=== PATIENT | female | born 1950 | race Caucasian/White ===

== ENCOUNTER 2019-09-21 08:30 | Inpatient (IN) | payer OTHER, SELFPAY ==
[2019-09-13 09:51] VITALS: BMI 42.5
[2019-09-21] VITALS (18 sets, daily range): BP systolic 103–176; BP diastolic 53–109; PULSE 60–71; RESP 10–18; TEMP 35.7–36.8; O2SAT 96–100; BMI 42.5
--- NOTE | 2019-09-21 | DI.RAD.S_ITS ---
PROCEDURE: XR LUMBAR SPINE 2-3V INDICATIONS: L3-4 TLIF TECHNIQUE: 2 views of the lumbar spine were acquired. COMPARISON: None. FINDINGS: Spot fluoroscopic intraoperative images demonstrating L3-L4 posterior spinal fixation and interbody cage graft. Expected intraoperative alignment. Dictated by: Carlos Pérez M.D. on 09/21/2019 at 14:52 Approved by: Carlos Pérez M.D. on 09/21/2019 at 14:55
[2019-09-21] MEDS: LACTATED RINGERS 1,000 ML 42 ML IV ×3 (10:06→15:08)
--- NOTE | 2019-09-21 11:02 | PM.PREOP ---
Pre-operative Note Interval Note History & Physical reviewed/Exam performed by Physician: Yes Changes to H&P: No
[2019-09-21] MEDS: CEFAZOLIN 2 GM/100 ML FROZ.PIGGY IV ×2 (11:40→20:10)
--- NOTE | 2019-09-21 12:22 | SUR.OPER ---
Prone on spine table, head in foam head support, padded chest and pelvic supports, gel pad at knees, lower legs supported by pillows; nipples, genitalia and toes free of pressure, arms secured on foam padded arm boards at <90 degrees abduction. Tape over blanket at thigh secured to table.
[2019-09-21] MEDS: BUPIVACAINE LIPOSOME 266 MG/20 ML VIAL INJ (12:29)
[2019-09-21] MEDS: BUPIVACAINE 0.25% W/ EPI 30 ML VIAL INJ (12:30)
[2019-09-21] MEDS: ACETAMINOPHEN IV 1,000 MG/100 ML VIAL 400 MG IV (13:45)
--- NOTE | 2019-09-21 14:29 | PM.OP.1 ---
Operative Date/Time/Diagnoses Date of procedure: 09/21/19 Time of procedure: 12:29 Pre-op diagnosis: 1. L3-4 spinal stenosis with neurogenic claudication 2. L2-3, L3-4 spinal stenosis with radiculopathy Post-op diagnosis: same Procedure & Clinicians Procedure: 1. L3-4 Postero-lateral and posterior interbody fusion 2. L3-4 interbody cage placement. 3. L3-4 decompressive laminectomy with bilateral facetecomies 4. L3-4 Posterior non-segmental instrumentation 5. L2-3 hemilaminectomy 6. Panacea of bone marrow from iliac crest 7. Utilization of microsurgical technique and operating microscope Same procedure as scheduled: Yes Indications: Patient has been having chronic back pain and worsening lumbar radiculopathy. Patient failed multiple conservative management with worsening pain weakness and numbness in her lower extremity. The patient has symptoms of neurogenic claudication. Patient has been having difficulty performing activity of daily living. After discussing risks benefits of treatment options, patient elected proceed with surgery. Surgeon: Farideh Schilling Director Of Clinical Education: Spring Roth Click Yes if Unassisted: No Anesthesia Type: General Operative Notes Closure Type: primary Specimen(s): none sent Prosthetic devices, grafts, tissues, transplants, or devices: GLobus revolve, Rise cage Estimated Blood Loss (mL): 100 Blood products transfused: none Procedure in detail: Patient was seen in the preoperative area. Risks and benefits of the surgery was discussed with the patient. Informed consent was obtained from the patient and placed in the chart. Surgical site was marked. Patient was taken to the operative room. General anesthesia was administered. Prophylactic antibiotic was given to the patient less than 30 min before the incision was made. Patient was placed into a prone position on the Garrett table. Patient's back was then prepped and draped in the sterile fashion. Time-out was performed at this time. Using AP and lateral C-arm imaging the interval between L2-3 L3-4 was identified and marked on patient's back. A 2 inch incision 2 in from midline was made on the left side first. The fascia was incised in line with skin incision. Globus MARS retractors was placed inside the incision and docked onto the L3 lamina. Using microsurgical technique and operating microscope, a L3 laminectomy and L3-4 facetectomy was performed using a Kerrison rongeur. The disc space at L3-4 was identified. Patient was found have severe central and neural foramen stenosis due to spondylosis and ligamentum flavum hypertrophy. After the decompression was completed all the neural structures were fully decompressed without any visible pressure. And a total diskectomy was performed at L3-4 level. The endplates were decorticated using a rasp and shaver. The total diskectomy and decortication was performed at L3-4 level in order to to accomplish a L3-4 fusion. The local bone from the laminectomy and facetectomy was saved for local bone grafting. After the total diskectomy and decortication was completed, Globus viacell bone graft material was combined with local bone that was harvested earlier. At this time, a separate skin is incision was made over the iliac crest. A Jamshidi needle was inserted into the iliac crest through a separate skin incision. 5 cc of bone marrow aspiration was obtained through the separate skin incision using a Jamshidi needle from the iliac crest. The bone marrow aspiration was combined with local bone and the via cell bone grafting material. The bone grafting material was placed into the L3-4 interbody space along with a expandable cage. The cage was expanded to its maximum height using the torque limiting screwdriver. At this time the MARS retractor was redirected over the L2 lamina. Using microsurgical technique and operating microscope, a L2-3 heminectomy was performed using the Kerrison rongeur. The ligamentum flavum was also resected at the side of the hemilaminectomy for further decompression of the epidural space. At this time a mirror image incision was made on the right side. The fascia was incised in line with the skin incision. Globus MARS retractor was inserted and docked onto the L3-4 posterolateral gutter. Using the power drill, posterior-lateral decortication was performed at L3-4 level until bleeding cortical bone was identified. The remaining bone grafting material was placed into the L3-4 posterior lateral gutter he order to accomplish posterolateral fusion at the L3-4 level. Using the double C-arm technique, pedicle screws were placed into the L3 and L4 pedicles bilaterally. This was done by placing the Jamshidi needle into the pedicles, then placing the guidewires over the Jamshidi needle, and finally placing the cannulated screws over the guidewires bilaterally. After the pedicle screws were placed, 2 titanium rods was locked into the heads of the pedicle screws using locking caps and torque limiting screwdriver. After all the hardware was placed, and confirmed with AP and lateral C-arm imaging, the wound was then irrigated with sterile normal saline and packed with Ray-Antonio gauze for 3 min to accomplish hemostasis. After the gauze was removed the deep fascia was closed with #1 Vicryl suture. The subcutaneous layer was closed with 2-0 Vicryl. The skin was closed with skin alex. Patient tolerated the procedure well. There were no complications. Complications: none Post-operative Condition: stable Disposition: PACU Plan for aftercare: Admit to inpatient hospital
[2019-09-21] MEDS: HYDROMORPHONE 2 MG INJ 0.5 MG IV ×3 (14:50→15:25)
[2019-09-21] MEDS: hydrOXYzine 50 MG/ML INJ 25 MG IM (14:51)
[2019-09-21] MEDS: SODIUM CHLORIDE 0.9% 1,000 ML 100 ML IV (16:39)
[2019-09-21] MEDS: OXYCODONE IR 5 MG TABLET 10 MG PO ×2 (16:42→20:07)
[2019-09-21] MEDS: INSULIN GLARGINE 100 UNIT/ML 3ML PEN 44 UNIT SUBCUT (17:01)
[2019-09-21] MEDS: INSULIN ASPART 100 UNIT/ML INSULN PEN SUBCUT (17:03)
[2019-09-21] MEDS: INSULIN ASPART 100 UNIT/ML INSULN PEN 34 UNIT SUBCUT (17:03)
--- NOTE | 2019-09-21 17:12 | PC.NURSE ---
1600 - Patient brought over from PACU in bed by nursing staff. Alert and oriented. Able to move all extremities. Dressing to back C/D/I with slight shadow drainage noted. Noted to have some small scantily bleeding areas on back. Back wiped down and blue drainage pad placed under patient. 1630 - Confirmed with patient that she takes 34+ units of novolog with meals. 1715 - Patient sitting up eating in bed with spouse helping. O2 saturation down to the 80's periodically. Placed patient on 2L O2. 99% oxygen saturation now.
[2019-09-21] MEDS: HYDROMORPHONE 1 MG INJ 0.5 MG IV ×2 (17:53→21:32)
[2019-09-21] MEDS: DOCUSATE 100 MG CAPSULE PO (20:07)
[2019-09-21] MEDS: hydrOXYzine pamoate 25 MG CAPSULE PO (20:08)
[2019-09-21] MEDS: SENNOSIDES 8.6 MG TABLET 17.2 MG PO (20:08)
[2019-09-21] MEDS: ALBUTEROL HFA 60 PUFF/8 GM INH INH (22:58)
[2019-09-22] VITALS (13 sets, daily range): BP systolic 115–129; BP diastolic 45–65; PULSE 64–86; RESP 12–20; TEMP 36.7–38; O2SAT 94–97
[2019-09-22] MEDS: OXYCODONE IR 5 MG TABLET 10 MG PO ×7 (01:04→23:30)
[2019-09-22] MEDS: ALBUTEROL HFA 60 PUFF/8 GM INH INH ×3 (01:04→12:36)
[2019-09-22] MEDS: hydrOXYzine pamoate 25 MG CAPSULE PO ×2 (01:04→05:09)
[2019-09-22] MEDS: HYDROMORPHONE 1 MG INJ 0.5 MG IV (02:13)
[2019-09-22] MEDS: CEFAZOLIN 2 GM/100 ML FROZ.PIGGY IV (03:21)
--- NOTE | 2019-09-22 07:40 | PM.PNPO.1 ---
Subjective Subjective Date Patient Seen: 09/22/19 Time Patient Seen: 07:40 Interval history: Pain is mil paind [id number]. Denies fever chills. No nausea vomiting. No shortness of breath or chest pain. Patient has been up using bedside commode. Exam Vital Signs (past 8 hours): - 09/22/19 00:52 09/22/19 05:36 Temperature 99.8 F H Pulse Rate 77 Respiratory Rate 14 Blood Pressure 115/49 L Pulse Oximetry 97 96 Oxygen Delivery Method Nasal Cannula Oxygen Flow Rate 2 Narrative Exam Narrative: 69-year-old female resting comfortably in bed in no apparent distress. Lumbar dressing is clean, dry and intact. Motor functions intact distal bilateral lower extremities. Sensation grossly intact to light touch bilateral lower extremities. Both legs are warm and dry. Objective Labs Labs: Laboratory Results - last 24 hr 09/21/19 16:00 Nasal Screen MRSA (PCR) Negative for mrsa Assessment & Plan Post-op Postoperative Procedures: Procedures Operation Date: 09/21/19 11:15 Actual Procedures Side Surgeon p L3-4 TLIF, L2-3 hemilaminectomy Farideh Schilling MD Postop day 1. Mobilize with physical therapy. Likely discharge home next day or 2.
[2019-09-22] MEDS: ATENOLOL 50 MG TABLET PO (08:22)
[2019-09-22] MEDS: DOCUSATE 100 MG CAPSULE PO ×2 (08:22→20:01)
[2019-09-22] MEDS: hydroCHLOROthiazide 25 MG TABLET PO (08:23)
[2019-09-22] MEDS: PANTOPRAZOLE 20 MG TABLET PO (08:23)
[2019-09-22] MEDS: SODIUM CHLORIDE 0.9% FLUSH 10 ML IV ×2 (08:23→16:00)
[2019-09-22] MEDS: EZETIMIBE 10 MG TABLET PO (08:23)
[2019-09-22] MEDS: INSULIN ASPART 100 UNIT/ML INSULN PEN SUBCUT (08:24)
[2019-09-22] MEDS: INSULIN ASPART 100 UNIT/ML INSULN PEN 34 UNIT SUBCUT ×3 (08:24→17:05)
--- NOTE | 2019-09-22 09:13 | CM.DANOTE ---
Addendum entered by Damari Salamanca R.N. 09/22/19 15:22: Spoke to patient to get permission to send referrals to intermediate facilities that can accept her insurance, just in case she needs skilled rehab before returning home. She stated, would be ok. Sent information to Tru at [facility], as well as Meredith at [facility], since authorization could take up to a couple of days. Addendum entered by Damari Salamanca R.N. 09/22/19 14:41: Confirmed with Meredith, that [facility] in [facility] does take her insurance. Tru at [facility] also stated that they accept her insurance. Authorization process can take a couple of days, and patient is not wanting to go to skilled at this point. Will check in again tomorrow. Addendum entered by Damari Salamanca R.N. 09/22/19 14:30: Met with patient, and , Man. Discussed intermediate, and patient stated I really don't want to go to a intermediate facility. was unclear as to what a rehab was, and what they do. Patient has [employer], and [facility] does not take. Went ahead and gave patient the Medicare Choice List, in case she changes her mind. P.T. recommendations are skilled versus 24 hour care, but is at home. Confirmed that they have a couple of steps to get into the home, and she can stay on the main floor. Left a message with [facility] and [facility] in [facility] to see if they take her insurance. Dominique at [facility] is uncertain if they take, since there are different types of [employer]. Stated that we can fax her over face sheet, and she can review, but would need to check with patient first. Will check in with patient again tomorrow, as well as P.T. team, as far as discharge planning. Original Note: DCP: Case received, EMR reviewed and met with patient. Introduced self and role. Was able to meet with patient and obtain baseline health and activity information. DCP assessment/template completed with information currently available. Patient is a 69 year old female who admitted yesterday morning to the care of the orthopedic team. PCP: Dr. Galeas. Payer: confirmed: [employer]. Patient came to the hospital for a surgical procedure. She had L3-4 Postero-lateral fusion. Met with patient in her room. She was sitting in a recliner next to her bed. Stated, she was having some discomfort. She has not yet worked with physical therapy. Patient is alert and oriented. She resides in [place] [facility] with her spouse, Man. Stated, her will be able to help her out. Confirmed with patient that she only has used a cane, but just purchased a walker. She has approximately 18 stairs in her home. She has been independent. P: DCP to continue to follow. Will consult with the therapy team as well to see how she is progressing. Goal for patient is to go home. Damari Salamanca RN/Hand Spring Repairer
--- NOTE | 2019-09-22 10:30 | PT.IIE ---
Current Diagnoses Morbid (severe) obesity due to excess calories (09/21/19) Other spondylosis with radiculopathy, lumbosacral region (09/21/19) Spinal stenosis, lumbar region with neurogenic claudication (09/21/19) Surgery Performed Operation Date: 09/21/19 11:15 Actual Procedures p L3-4 TLIF, L2-3 hemilaminectomy - Farideh Schilling MD Surgical History (Last Updated 09/13/19 @ 10:27 by Vita Cardenas RN) History of left oophorectomy (Acute) History of total right hip arthroplasty (Acute ~2009) Hx of appendectomy (Acute) Hx of sinus surgery (Acute ~2001) Hx of tonsillectomy (Acute) Medical History (Last Updated 09/13/19 @ 10:28 by Vita Cardenas RN) Anemia (Acute) Arthritis (Acute) Asthma (Acute) Back pain (Acute) Bilateral carpal tunnel syndrome (Acute) Diabetes (Acute) Easy bruisability (Acute) Fatty liver (Acute) Fibromyalgia (Acute) GERD (gastroesophageal reflux disease) (Acute) HLD (hyperlipidemia) (Acute) HTN (hypertension) (Acute) IBS (irritable bowel syndrome) (Acute) Migraine (Acute) Numbness and tingling in both hands (Acute) Sciatica (Acute) Physical Therapy Inpatient Evaluation/Re-Eval M1 PT/OT-IP Prior Functional Status Start: 09/22/19 12:36 Freq: NEEDED Status: Active Protocol: Document 09/22/19 10:30 AB (Rec: 09/22/19 12:53 AB [id number]) Medical Review Prior Functional Status Medical History Reviewed Yes Communication able to make needs known; pt is sleepy Mobility and Gait pt stated that she is independent with all mobilities and ambulation without AD Social History Household Members spouse Living Arrangements House Number of Floors (Floors) Two Floors Number of Stairs To Enter/Railing? 2 steps to enter without rail has 9 steps with bilat rais + 9 steps with L rail ascending ot bedroom level but stated that she can stay on main level of the house Home Environment Standard Height Toilet,Walk in Shower,Built-In Shower Seat Home Equipment Front Wheel Walker,Hand Held Shower,Grab Bars In Shower Additional Social History Comment pt has an adjustable bed but pt sleeps on a power recliner pt also has a hurrycane M2 PT-IP Current Condition Start: 09/22/19 12:36 Freq: NEEDED Status: Active Protocol: Document 09/22/19 10:30 AB (Rec: 09/22/19 12:53 AB [id number]) Physical Therapy Current Condition Current Condition Evaluation Date 09/22/19 Treatment Diagnosis s/p L3-4 fusion/lami; L2-3 hemilami; difficulty in walking Onset Date 09/21/19 Precautions Lumbar Precautions Log Roll,No Twisting,Limit Bending,Lifting Restriction of 10 lbs,Gait Belt above Incisional Area M3 PT-IP Subjective Start: 09/22/19 12:36 Freq: NEEDED Status: Active Protocol: Document 09/22/19 10:30 AB (Rec: 09/22/19 12:53 AB [id number]) Subjective Physical Therapy Visit Type Type Initial Evaluation Visit Start Time 10:30 Visit Stop Time 11:21 Total Visit Minutes 51 Number of OCTAVE BOARD ASSEMBLER Visits 0 Physical Therapy Visit Comments Patient Comments pt agreeable to do PT Therapy Pain Assessment Pain When Pain Assessed At Rest Pain Present Pain Present Pain Reported Location Left Hip Intensity 4 Scale Used increases with mobility Pain Management Techniques Distraction,Re-positioning, Timing of Activity with Medications M4 PT-IP Mobility and Gait Start: 09/22/19 12:36 Freq: NEEDED Status: Active Protocol: Document 09/22/19 10:30 AB (Rec: 09/22/19 12:53 AB [id number]) PT-Bed Mobility Assessment Rolling Level of Assist Maximal Assistance,1 Person Assistance Sit to Supine Sit to Supine Maximum Assistance,1 Person Assistance,Bedrails PT-Transfer Assessment Sit to and From Stand Sit to and from Stand Moderate Assistance,1 Person Assistance,Use of Upper Extremities Equipment Transfer Assistive Device Gait Belt,Front Wheeled Walker Orthotic/Prosthetic Devices or Brace: No Transfers Transfer Destination Toilet Transfer Technique pt ambulated using FWW Transfer Ability Level of Assist Minimal Assistance,Moderate Assistance,1 Person Assistance ,Use of Upper Extremities Comments Mobility Comments pt found sitting on chair. completed sit to stand mod A and cues for techniques and safety. pt requested to use the toilet. ambulated using FWW min to mod A and cues ~ 12 ft. pt completed sit to stand from bedside commode mod A and max cues. ambulated towards the bed using FWW ~ 12 ft min A to mod A. requiring increase assistance towards end of ambulation with increase bilateral knee flexion. pt stated that her pain is more and her arms are tired. pt required max A with bed mobility sit to supine. requested to stay on her side and positioned but after ~ 3 min stated that she has to lie down on her back and repositioned. after repositioning, stated that it will not work and will have to be repositioned again. informed nurse that pt require assistance with further repositioning. call light and table set next to pt . informed spouse regarding concerns and equipement needs. Gait Assessment Gait Gait Assistance Required: Minimum Assistance,Moderate Assistance Distance (Feet) 12 Able to Maintain Weight Bearing Status Yes During Gait Assistive Devices Assistive Device Gait Belt,Front Wheeled Walker Orthotic/Prosthetic Devices or Brace: No Gait Deviations General Gait Pattern Antalgic,Decreased Stride Length,Decreased Feet Clearance,Step-to Gait Factors Limiting Gait Function Factors Limiting Gait Function Decreased Activity Tolerance, Decreased Strength,Difficulty Following Directions,Limited Range of Motion,Pain,Poor Balance,Poor Safety Awareness Comments Gait Comments pls refer to mobility section for details PT-Balance Assessment Sitting Balance and Reactions Static Sitting Balance Ability Good Dynamic Sitting Balance Ability Good Standing Balance and Reactions Static Standing Balance Ability Fair Dynamic Standing Balance Ability Poor Device Used FWW M5 PT-IP Objective Assessments Start: 09/22/19 12:36 Freq: NEEDED Status: Active Protocol: Document 09/22/19 10:30 AB (Rec: 09/22/19 12:53 AB [id number]) Orientation Orientation/Cognition Orientation Name,Place,Situation Language Function Ability No Deficits Noted Safety Awareness Decreased Safety Awareness Memory Description Short Term Impaired Comments pt was sleepy and requires cue to keep eyes open initially but was able to stay alert during mobility Gross Range of Motion Lower Extremity ROM Assessment Within Functional Limits Strength Lower Extremity Strength Hip 4-/5 Knee 4-/5 Coordination Assessment Gross Coordination Gross Coordination WNL Muscle Tone Muscle Tone WNL Yes M6 PT-IP Treatment Start: 09/22/19 12:36 Freq: NEEDED Status: Active Protocol: Document 09/22/19 10:30 AB (Rec: 09/22/19 12:53 AB [id number]) Physical Therapy Treatment Education Education Provided Precautions,Weight Bearing Status,Post-Op Packet,Safety M7 PT-IP Assessment and Plan Start: 09/22/19 12:36 Freq: NEEDED Status: Active Protocol: Document 09/22/19 10:30 AB (Rec: 09/22/19 12:53 AB [id number]) PT Summary Assessment and Plan Potential Rehabilitation Potential Good Status of Condition at Evaluation Evolving Summary Impairments Pain,ROM,Strength,Balance, Coordination,Sensation,Tone, Cognition,Bed Mobility, Transfers,Gait,Activity Tolerance Assessment Summary pt requiring min to mod A with mobility but unable to tolerate much activity. increase assistance during ambulation using FWW towards end of activity with increase bilateral gray flexion. d/c plan depending on progress and if spouse will be able to assist pt and if pt will be able to safely complete stairs . Goals Bed Mobility Goal Standby Assistance Transfer Goal Standby Assistance,Front Wheeled Walker Gait Goal Standby Assistance,Front Wheel Walker Gait Distance 150 Other Goals up/down 2 steps without rails: using hurrycane+ PULLING UNIT FLOORHAND Days to Meet Goals 5 Frequency of Treatment Frequency Of Treatment Twice a Day Treatment Plan Physical Therapy Treatment Plan Bed Mobility Training,Transfer Training,Gait Training, Therapeutic Exercise,Balance Retraining,Post Op Education, Discharge Planning,Hot or Cold Pack,Neuromuscular Re-ed, Coordination Retraining,Manual Therapy Other Recommendations and Next Treatment ambulation, caregiver training Focus Recommendations To Nursing Amount of Assist Needed 1 Person Assist Discharge Recommendations PT Discharge Recommendations Home with 24/7 Assist,SNF Rehab Other Discharge Recommendations SNF vs home with 24/7 depending on progress
[2019-09-22] MEDS: LOSARTAN 50 MG TABLET 100 MG PO (11:29)
--- NOTE | 2019-09-22 13:17 | PC.NURSE ---
Pt checked on and assessed. Pt is received sitting up in bed, initially reports pain well-controlled, but after mobilizing, pt reports pain up to 7/10, given po oxycodone with pain well controlled. Pt is drowsy after pain medication administration. Post-op dressing is CDI. CMS intact to pt's baseline, pt is strong but takes time to mobilize d/t pain. Pt wears braces on bilateral arms d/t carpal tunnel syndrome. Pt is improving mobility throughout the day. Voiding adequate volumes throughout the day. Call light in reach. Will continue to monitor, notify MD with changes.
--- NOTE | 2019-09-22 13:35 | PT.IPTN ---
Addendum entered and electronically signed by Deepika Carl PTA 09/22/19 15:19: Pt was up in the chair to each lunch with in room when completed PT. Call light was within reach on EOB. Original Note: Current Diagnoses Morbid (severe) obesity due to excess calories (09/21/19) Other spondylosis with radiculopathy, lumbosacral region (09/21/19) Spinal stenosis, lumbar region with neurogenic claudication (09/21/19) Surgery Performed Operation Date: 09/21/19 11:15 Actual Procedures p L3-4 TLIF, L2-3 hemilaminectomy - Farideh Schilling MD Physical Therapy Treatment Note M2 PT-IP Current Condition Start: 09/22/19 12:36 Freq: NEEDED Status: Active Protocol: Document 09/22/19 10:30 AB (Rec: 09/22/19 12:53 AB [id number]) Physical Therapy Current Condition Current Condition Evaluation Date 09/22/19 Treatment Diagnosis s/p L3-4 fusion/lami; L2-3 hemilami; difficulty in walking Onset Date 09/21/19 Precautions Lumbar Precautions Log Roll,No Twisting,Limit Bending,Lifting Restriction of 10 lbs,Gait Belt above Incisional Area M3 PT-IP Subjective Start: 09/22/19 12:36 Freq: NEEDED Status: Active Protocol: Document 09/22/19 13:35 SP (Rec: 09/22/19 13:49 SP [id number]) Subjective Physical Therapy Visit Type Type Treatment Note Visit Start Time 12:50 Visit Stop Time 13:35 Total Visit Minutes 2 Number of TEACHER ADULT EDUCATION Visits 1 Physical Therapy Visit Comments Patient Comments Pt willing to work with PT this afternoon. Patient Goals get up and move around more, go to the bathroom. Therapy Pain Assessment Pain When Pain Assessed At Rest Pain Present Pain Present Pain Reported Location Left Hip Intensity 5 Scale Used Numeric (1 - 10) Pain Management Techniques Re-positioning,Timing of Activity with Medications M4 PT-IP Mobility and Gait Start: 09/22/19 12:36 Freq: NEEDED Status: Active Protocol: Document 09/22/19 13:35 SP (Rec: 09/22/19 13:56 SP [id number]) PT-Bed Mobility Assessment Supine to Sit Supine to Sit Maximum Assistance,1 Person Assistance,Bedrails Scooting Scooting to Edge of Bed Moderate Assistance PT-Transfer Assessment Sit to and From Stand Sit to and from Stand Moderate Assistance,1 Person Assistance,Use of Upper Extremities Equipment Transfer Assistive Device Gait Belt,Front Wheeled Walker Orthotic/Prosthetic Devices or Brace: No Transfers Transfer Destination Chair,Toilet Transfer Technique pt ambulated using FWW Transfer Ability Level of Assist Minimal Assistance,Moderate Assistance,1 Person Assistance ,Use of Upper Extremities Comments Mobility Comments Pt found R sidelying in bed with pillows between knees when arrived. sidely>sitting with cues for hand placement usign rail and pushing from bed Max A x1, Mod A to scoot to EOB, Mod A sit to stand with safety cues for hand placement to push up, sitting down, and body spacial awareness positioning prior to sitting. Pt good recall to precautions. Pt demonstrated Min BUE support on FWW during gait to bathroom, required full A for hygiene durign toileting x2 occurances during tx. Gait Assessment Gait Gait Assistance Required: Contact Guard Assist,Minimum Assistance Distance (Feet) 30 Able to Maintain Weight Bearing Status Yes During Gait Assistive Devices Assistive Device Gait Belt,Front Wheeled Walker Orthotic/Prosthetic Devices or Brace: No Gait Deviations General Gait Pattern Antalgic,Decreased Stride Length,Decreased Feet Clearance,Step-to Gait Factors Limiting Gait Function Factors Limiting Gait Function Decreased Activity Tolerance, Decreased Strength,Difficulty Following Directions,Limited Range of Motion,Pain,Poor Balance,Poor Safety Awareness Comments Gait Comments pls refer to mobility section for details PT-Balance Assessment Sitting Balance and Reactions Static Sitting Balance Ability Good Dynamic Sitting Balance Ability Good Standing Balance and Reactions Static Standing Balance Ability Fair Dynamic Standing Balance Ability Fair Device Used FWW M5 PT-IP Objective Assessments Start: 09/22/19 12:36 Freq: NEEDED Status: Active Protocol: Document 09/22/19 10:30 AB (Rec: 09/22/19 12:53 AB [id number]) Orientation Orientation/Cognition Orientation Name,Place,Situation Language Function Ability No Deficits Noted Safety Awareness Decreased Safety Awareness Memory Description Short Term Impaired Comments pt was sleepy and requires cue to keep eyes open initially but was able to stay alert during mobility Gross Range of Motion Lower Extremity ROM Assessment Within Functional Limits Strength Lower Extremity Strength Hip 4-/5 Knee 4-/5 Coordination Assessment Gross Coordination Gross Coordination WNL Muscle Tone Muscle Tone WNL Yes M6 PT-IP Treatment Start: 09/22/19 12:36 Freq: NEEDED Status: Active Protocol: Document 09/22/19 13:35 SP (Rec: 09/22/19 13:49 SP [id number]) Physical Therapy Treatment Exercises Exercises Ankle Pumps,Seated Knee Flexion/Extension Knee ROM Measurement seated march Education Education Provided Precautions,Safety M7 PT-IP Assessment and Plan Start: 09/22/19 12:36 Freq: NEEDED Status: Active Protocol: Document 09/22/19 13:35 SP (Rec: 09/22/19 13:49 SP [id number]) PT Summary Assessment and Plan Potential Rehabilitation Potential Good Status of Condition at Evaluation Evolving Summary Impairments Pain,ROM,Strength,Balance, Coordination,Sensation,Tone, Cognition,Bed Mobility, Transfers,Gait,Activity Tolerance Assessment Summary pt requiring Max A x1 for supine>sitting and scooting to EOB, mod A x1 sit <> stand, CGA gait side chair to toilet x2 with minimal BUE WB on FWW, no LOB or deviations. Cued for safety wtih hand placement to stand , sit , spacial awareness of body positioning priort to sitting. Pt had increased activity tolerance this afternoon. d/c plan depending on progress and if spouse will be able to assist pt and if pt will be able to safely complete stairs. Goals Bed Mobility Goal Standby Assistance Transfer Goal Standby Assistance,Front Wheeled Walker Gait Goal Standby Assistance,Front Wheel Walker Gait Distance 150 Other Goals up/down 2 steps without rails: using hurrycane+ CUT TOBAC[employer] BULKER Days to Meet Goals 5 Frequency of Treatment Frequency Of Treatment Twice a Day Treatment Plan Physical Therapy Treatment Plan Bed Mobility Training,Transfer Training,Gait Training, Therapeutic Exercise,Balance Retraining,Post Op Education, Discharge Planning,Hot or Cold Pack,Neuromuscular Re-ed, Coordination Retraining,Manual Therapy Other Recommendations and Next Treatment ambulation, caregiver training Focus Recommendations To Nursing Amount of Assist Needed 1 Person Assist Discharge Recommendations PT Discharge Recommendations Home with 24/7 Assist,SNF Rehab Other Discharge Recommendations SNF vs home with 24/7 depending on progress
--- NOTE | 2019-09-22 15:30 | OT.IP.EVAL ---
Current Diagnoses Morbid (severe) obesity due to excess calories (09/21/19) Other spondylosis with radiculopathy, lumbosacral region (09/21/19) Spinal stenosis, lumbar region with neurogenic claudication (09/21/19) Surgery Performed Operation Date: 09/21/19 11:15 Actual Procedures p L3-4 TLIF, L2-3 hemilaminectomy - Farideh Schilling MD Past Medical History (Last Updated 09/13/19 @ 10:28 by Vita Cardenas RN) Anemia (Acute) Arthritis (Acute) Asthma (Acute) Back pain (Acute) Bilateral carpal tunnel syndrome (Acute) Diabetes (Acute) Easy bruisability (Acute) Fatty liver (Acute) Fibromyalgia (Acute) GERD (gastroesophageal reflux disease) (Acute) HLD (hyperlipidemia) (Acute) HTN (hypertension) (Acute) IBS (irritable bowel syndrome) (Acute) Migraine (Acute) Numbness and tingling in both hands (Acute) Sciatica (Acute) Surgical History (Last Updated 09/13/19 @ 10:27 by Vita Cardenas RN) History of left oophorectomy (Acute) History of total right hip arthroplasty (Acute ~2009) Hx of appendectomy (Acute) Hx of sinus surgery (Acute ~2001) Hx of tonsillectomy (Acute) Occupational Therapy Inpatient Evaluation/Re-Eval M1 PT/OT-IP Prior Functional Status Start: 09/22/19 17:30 Freq: NEEDED Status: Active Protocol: Document 09/22/19 15:30 [facility] (Rec: 09/22/19 17:50 [facility] [id number]) Medical Review Prior Functional Status Medical History Reviewed Yes Communication able to make needs known; pt is sleepy Mobility and Gait pt stated that she is independent with all mobilities and ambulation without AD Activities of Daily Living and IADL's Pt states able to do all ADl's and however admitted to not being able to wipe herself. Social History Household Members spouse Living Arrangements House Number of Floors (Floors) Two Floors Number of Stairs To Enter/Railing? 2 steps to enter without rail has 9 steps with bilat rails + 9 steps with L rail ascending ot bedroom level but stated that she can stay on main level of the house Home Environment Standard Height Toilet,Walk in Shower,Built-In Shower Seat Home Equipment Front Wheel Walker,Hand Held Shower,Grab Bars In Shower Additional Social History Comment pt has an adjustable bed but pt sleeps on a power recliner pt also has a hurrycane M2 OT-IP Current Condition Start: 09/22/19 17:30 Freq: Status: Active Protocol: Document 09/22/19 15:30 [facility] (Rec: 09/22/19 17:50 [facility] [id number]) Occupational Therapy Current Condition Current Condition Evaluation Date 09/22/19 Treatment Diagnosis S/p L3-4 fusion/lami L2-3 luciano -lami, decreased self care Diagnosis Onset Date 09/21/19 Post Operative Precautions Lumbar Precautions Log Roll,No Twisting,Limit Bending,Lifting Restriction of 10 lbs,Gait Belt above Incisional Area Weight Bearing Status Weight Bearing Status Weight Bear as Tolerated M3 OT- IP Subjective and Pain Start: 09/22/19 17:30 Freq: Status: Active Protocol: Document 09/22/19 15:30 [facility] (Rec: 09/22/19 17:50 [facility] [id number]) OT- Subjective Occupational Therapy Visit Type Type Initial Evaluation Visit Start Time 15:30 Visit Stop Time 15:58 Total Visit Minutes 28 Occupational Therapy Visit Comments Patient Comments Pt wanting to get back to bed and present for OT eval. Patient/Caregiver Goals Pt wanting to go home. OT Pain Assessment Pain When Pain Assessed At Rest Pain Present Pain Present Pain Reported Location Left Hip Intensity 5 Scale Used Numeric (1 - 10) M4 OT- IP ADL's Start: 09/22/19 17:30 Freq: Status: Active Protocol: Document 09/22/19 15:30 [facility] (Rec: 09/22/19 17:50 [facility] [id number]) OT ADL-Dressing General Eval Lower Body Dressing Ability Maximum Assistance Areas Needing Assistance Socks Comments OT Dressing Comments Pt has chemical engineering teacher at home and will benefit from more training with LB dressing equipment tomorrow for OT. OT ADL-Toileting Comments OT Toileting Comments pt not having to use the toilet. Suggested pt get BSC as pt heavily relies on her arms to stand and also can be used next to the bed if needed. In addition pt may want to consider getting toilet aid as unable to reach to wipe or will have to assist. OT ADL-Bathing Comments OT Bathing Comments Pt has built in wilber at home. M5 OT- IP IADL's Start: 09/22/19 17:30 Freq: Status: Active Protocol: Document 09/22/19 15:30 [facility] (Rec: 09/22/19 17:50 [facility] [id number]) OT-Instrumental Activities of Daily Living Medication Management Medication Management Comments Suggested pt's to assist as pt very groggy from pain medications. Money Management Money Management Caregiver Provides Assistance Manager Utilization Manager Utilization Caregiver Provides Assist M6 OT- IP Functional Cognition Start: 09/22/19 17:30 Freq: Status: Active Protocol: Document 09/22/19 15:30 [facility] (Rec: 09/22/19 17:50 [facility] [id number]) Cognitive Factors Limiting Selfcare Function Cognitive Ability Level of Alertness Alert,Drowsy Patient Orientation Name,Place,Situation Attention Span Ability Capable of Focused Attention, Capable of Sustained Attention Ability to Follow Commands Able to Follow One Step Commands with Increased Time, Able to Follow One Step Commands with Repetition Memory Description Short Term Impaired Safety Awareness Decreased Recall of Precautions,Decreased Ability to Apply Precautions, Underestimates Need for Assistance Cognitive Comments Cognitive Assessment Comments Pt unable to recall back precautions and needed step by step instructions for safety awareness for hand placement and FWW use.Pt falling asleep during OT eval. OT- Vision and Hearing OT- Hearing Assessment OT- Hearing Assessment WFL OT- Vision Assessment Visual Acuity Glasses For Reading M7 OT- IP Mobility and Balance Start: 09/22/19 17:30 Freq: Status: Active Protocol: Document 09/22/19 15:30 [facility] (Rec: 09/22/19 17:50 [facility] [id number]) OT-Transfer Assessment Sit to and From Stand Sit to and from Stand Moderate Assistance Transfers Transfer Ability Minimal Assistance,Moderate Assistance,1 Person Assistance Technique Transfer Destination Bed,Chair Transfer Technique Stand Step Pivot Devices Transfer Assistive Devices Gait Belt,Front Wheeled Walker Comments Mobility Comments Pt usually sleeps in a recliner at home. MODA to help stand and MIN/MODA for steadying and to help guide FWW and to ease down to the recliner. OT- Balance Assessment Sitting Balance and Reactions Static Sitting Balance Ability Good Standing Balance and Reactions Static Standing Balance Ability Fair M8 OT- IP Objective Assessments Start: 09/22/19 17:30 Freq: Status: Active Protocol: Document 09/22/19 15:30 [facility] (Rec: 09/22/19 17:50 [facility] [id number]) OT Gross Range of Motion Upper Extremity Range of Motion Assessment Right Impaired ROM Impairments Per pt right UE catches at times when reaching upright. OT Strength Comments Strength Comments Pt had bilateral wrist braces due to carpal tunnel. Pt's hand loss control consultant 3+/4-. OT- Coordination Assessment Comments Coordination Comments Decreased coordination in hands. M9 OT- IP Assessment and Plan Start: 09/22/19 17:30 Freq: Status: Active Protocol: Document 09/22/19 15:30 [facility] (Rec: 09/22/19 17:50 [facility] [id number]) OT Summary Assessment and Plan Potential Rehabilitation Potential Good Analytic Complexity at Evaluation Low Summary OT Impairments Pain,Balance,Coordination, Functional Cognition, Functional Mobility,Grooming, Dressing,Toileting,Bathing, Toilet Transfers,Shower Transfers Progress Towards Goals Slow Progress due to Pain,Slow Progress due to Activity Tolerance,Slow Progress due to Cognition Assessment Summary Pt low complexity and main barriers are steps, decreased ADl's and functional mobility , decreased activity tolerance , strength and safety awareness at this time. Pt wanting to go home. Pt's needing repetitive instructions of what equipment to get for the pt and need need multiple caregiver sessions prior for ADL and functional mobility training prior to going home. Pending caregiver training pt to go home with assist and HH versus skilled rehab. Goals Grooming Goal Standby Assistance Dressing Goal Minimal Assistance Toileting Goal Minimal Assistance Bathing Goal Minimal Assistance Toilet Transfer Goal Standby Assistance Shower Transfer Goal Contact Guard Assistance Patient/Caregiver Education Goal Demonstrate Post-Op Precautions,Caregiver Independent Assisting Patient Days to Meet Goals 5 Frequency of Treatment Frequency Of Treatment Once a Day Treatment Plan OT Treatment Plan ADL Training,Functional Cognition Training,Functional Mobility,Patient/Family Education,Discharge Planning Other Treatment Recommendations and Next caregiver training with Treatment Focus Discharge Recommendations OT Discharge Recommendations SNF Rehab Other Discharge Recommendations Pending caregiver training completion and safety SNF versus Home with assist and HH . Home Equipment Needs BSC, LB dressing adaptive equipment, toilet aid
[2019-09-22] MEDS: ACETAMINOPHEN 325 MG TABLET 650 MG PO ×2 (17:01→23:31)
[2019-09-22] MEDS: INSULIN GLARGINE 100 UNIT/ML 3ML PEN 44 UNIT SUBCUT (17:06)
[2019-09-22] MEDS: SENNOSIDES 8.6 MG TABLET 17.2 MG PO (20:01)
[2019-09-22] MEDS: MAGNESIUM HYDROXIDE 30 ML UDC PO (23:41)
[2019-09-23 03:43] VITALS: BP 125/52; PULSE 56; RESP 18; TEMP 36.8; O2SAT 99
[2019-09-23] MEDS: OXYCODONE IR 5 MG TABLET 10 MG PO ×5 (03:45→22:45)
[2019-09-23] MEDS: hydrOXYzine pamoate 25 MG CAPSULE PO ×2 (05:33→08:20)
[2019-09-23 08:00] VITALS: BP 154/69; PULSE 60; RESP 20; TEMP 36.9; O2SAT 95
[2019-09-23 08:20] VITALS: BP 154/69
[2019-09-23] MEDS: PANTOPRAZOLE 20 MG TABLET PO (08:20)
[2019-09-23] MEDS: LOSARTAN 50 MG TABLET 100 MG PO (08:20)
[2019-09-23] MEDS: DOCUSATE 100 MG CAPSULE PO ×2 (08:20→20:24)
[2019-09-23] MEDS: hydroCHLOROthiazide 25 MG TABLET PO (08:20)
[2019-09-23] MEDS: INSULIN ASPART 100 UNIT/ML INSULN PEN SUBCUT ×3 (08:57→17:05)
[2019-09-23] MEDS: INSULIN ASPART 100 UNIT/ML INSULN PEN 34 UNIT SUBCUT ×3 (08:57→17:06)
[2019-09-23] MEDS: EZETIMIBE 10 MG TABLET PO (09:10)
[2019-09-23] MEDS: ATENOLOL 50 MG TABLET PO (09:10)
[2019-09-23 09:32] VITALS: PULSE 68; RESP 16; O2SAT 95
--- NOTE | 2019-09-23 12:05 | PT.IPTN ---
Current Diagnoses Morbid (severe) obesity due to excess calories (09/21/19) Other spondylosis with radiculopathy, lumbosacral region (09/21/19) Spinal stenosis, lumbar region with neurogenic claudication (09/21/19) Surgery Performed Operation Date: 09/21/19 11:15 Actual Procedures p L3-4 TLIF, L2-3 hemilaminectomy - Farideh Schilling MD Physical Therapy Treatment Note M2 PT-IP Current Condition Start: 09/22/19 12:36 Freq: NEEDED Status: Active Protocol: Document 09/22/19 10:30 AB (Rec: 09/22/19 12:53 AB [id number]) Physical Therapy Current Condition Current Condition Evaluation Date 09/22/19 Treatment Diagnosis s/p L3-4 fusion/lami; L2-3 hemilami; difficulty in walking Onset Date 09/21/19 Precautions Lumbar Precautions Log Roll,No Twisting,Limit Bending,Lifting Restriction of 10 lbs,Gait Belt above Incisional Area M3 PT-IP Subjective Start: 09/22/19 12:36 Freq: NEEDED Status: Active Protocol: Document 09/23/19 12:09 SP (Rec: 09/23/19 12:23 SP [id number]) Subjective Physical Therapy Visit Type Type Treatment Note Visit Start Time 11:50 Visit Stop Time 12:05 Total Visit Minutes 3 Number of DRY KILN OPERATOR Visits 2 Physical Therapy Visit Comments Patient Comments Pt willing to work with PT, having bowel problems this am. Patient Goals Go to the bathroom one more time then trial steps to be able to go home. Therapy Pain Assessment Pain When Pain Assessed At Rest Pain Present Pain Present Pain Reported Location Left Hip Intensity 4 Scale Used Numeric (1 - 10) Description Cramping,Spasm Pain Management Techniques Re-positioning,Timing of Activity with Medications M4 PT-IP Mobility and Gait Start: 09/22/19 12:36 Freq: NEEDED Status: Active Protocol: Document 09/23/19 12:09 SP (Rec: 09/23/19 12:23 SP [id number]) PT-Transfer Assessment Sit to and From Stand Sit to and from Stand Minimal Assistance,1 Person Assistance,Use of Upper Extremities Equipment Transfer Assistive Device Gait Belt,Front Wheeled Walker Orthotic/Prosthetic Devices or Brace: No Transfers Transfer Destination Chair,Toilet Transfer Technique pt ambulated using FWW Transfer Ability Level of Assist Minimal Assistance,1 Person Assistance,Use of Upper Extremities Comments Mobility Comments Pt was sitting in side chair when arrived to PT. Pt required decreased Min A for sit to stand from chair with use of 1, cued to scoot forward to EOC and wt shift forward with BUE support. Gait Assessment Gait Gait Assistance Required: Contact Guard Assist,Minimum Assistance,1 Person Assist Distance (Feet) 15 Able to Maintain Weight Bearing Status Yes During Gait Assistive Devices Assistive Device Gait Belt,Front Wheeled Walker Orthotic/Prosthetic Devices or Brace: No Gait Deviations General Gait Pattern Antalgic,Decreased Stride Length,Decreased Feet Clearance,Step-to Gait Factors Limiting Gait Function Factors Limiting Gait Function Decreased Activity Tolerance, Decreased Strength,Difficulty Following Directions,Limited Range of Motion,Pain,Poor Balance,Poor Safety Awareness Comments Gait Comments Pt COG more posteriorly, cued for foward trunk hip hinge for safety with balance, no LOB, good FWW navigation. PT-Balance Assessment Sitting Balance and Reactions Static Sitting Balance Ability Good Dynamic Sitting Balance Ability Good Standing Balance and Reactions Static Standing Balance Ability Fair Dynamic Standing Balance Ability Fair Device Used fww M5 PT-IP Objective Assessments Start: 09/22/19 12:36 Freq: NEEDED Status: Active Protocol: Document 09/22/19 10:30 AB (Rec: 09/22/19 12:53 AB [id number]) Orientation Orientation/Cognition Orientation Name,Place,Situation Language Function Ability No Deficits Noted Safety Awareness Decreased Safety Awareness Memory Description Short Term Impaired Comments pt was sleepy and requires cue to keep eyes open initially but was able to stay alert during mobility Gross Range of Motion Lower Extremity ROM Assessment Within Functional Limits Strength Lower Extremity Strength Hip 4-/5 Knee 4-/5 Coordination Assessment Gross Coordination Gross Coordination WNL Muscle Tone Muscle Tone WNL Yes M6 PT-IP Treatment Start: 09/22/19 12:36 Freq: NEEDED Status: Active Protocol: Document 09/22/19 13:35 SP (Rec: 09/22/19 13:49 SP [id number]) Physical Therapy Treatment Exercises Exercises Ankle Pumps,Seated Knee Flexion/Extension Knee ROM Measurement seated march Education Education Provided Precautions,Safety M7 PT-IP Assessment and Plan Start: 09/22/19 12:36 Freq: NEEDED Status: Active Protocol: Document 09/23/19 12:09 SP (Rec: 09/23/19 12:23 SP [id number]) PT Summary Assessment and Plan Potential Rehabilitation Potential Good Status of Condition at Evaluation Evolving Summary Impairments Pain,ROM,Strength,Balance, Coordination,Sensation,Tone, Cognition,Bed Mobility, Transfers,Gait,Activity Tolerance Assessment Summary Pt required Min A x1 to complete sit to stand from chair with cued for forward wt shift, CGA-Min A during gait chair to bathroom using FWW. No LOB, noted retro wt COG over DOTTIE, improved post cue. Pt required nursing A for bowel support during toileting . Pt requested to discontinue PT and continue later today. Will assess gait endurance and stair mgt (2 steps no HR to assimulate home) in afternoon. Pt was safe and in bathroom with nursing at end of tx. Goals Bed Mobility Goal Standby Assistance Transfer Goal Standby Assistance,Front Wheeled Walker Gait Goal Standby Assistance,Front Wheel Walker Gait Distance 150 Other Goals up/down 2 steps without rails: using hurrycane+ LIFE SCIENCES TEACHER Days to Meet Goals 5 Frequency of Treatment Frequency Of Treatment Twice a Day Treatment Plan Physical Therapy Treatment Plan Bed Mobility Training,Transfer Training,Gait Training, Therapeutic Exercise,Balance Retraining,Post Op Education, Discharge Planning,Hot or Cold Pack,Neuromuscular Re-ed, Coordination Retraining,Manual Therapy Other Recommendations and Next Treatment ambulation, caregiver training Focus Recommendations To Nursing Amount of Assist Needed 1 Person Assist Discharge Recommendations PT Discharge Recommendations Home with 24/7 Assist,SNF Rehab Other Discharge Recommendations SNF vs home with 24/7 depending on progress
--- NOTE | 2019-09-23 13:00 | OT.IP.TRT ---
Current Diagnoses Morbid (severe) obesity due to excess calories (09/21/19) Other spondylosis with radiculopathy, lumbosacral region (09/21/19) Spinal stenosis, lumbar region with neurogenic claudication (09/21/19) Surgery Performed Operation Date: 09/21/19 11:15 Actual Procedures p L3-4 TLIF, L2-3 hemilaminectomy - Farideh Schilling MD Occupational Therapy Treatment Note M2 OT-IP Current Condition Start: 09/22/19 17:30 Freq: Status: Active Protocol: Document 09/22/19 15:30 CCC (Rec: 09/22/19 17:50 [facility] [id number]) Occupational Therapy Current Condition Current Condition Evaluation Date 09/22/19 Treatment Diagnosis S/p L3-4 fusion/lami L2-3 luciano -lami, decreased self care Diagnosis Onset Date 09/21/19 Post Operative Precautions Lumbar Precautions Log Roll,No Twisting,Limit Bending,Lifting Restriction of 10 lbs,Gait Belt above Incisional Area Weight Bearing Status Weight Bearing Status Weight Bear as Tolerated M3 OT- IP Subjective and Pain Start: 09/22/19 17:30 Freq: Status: Active Protocol: Document 09/23/19 14:39 CGR (Rec: 09/23/19 14:51 CGR [id number]) OT- Subjective Occupational Therapy Visit Type Type Treatment Note Visit Start Time 12:26 Visit Stop Time 13:00 Total Visit Minutes 34 Notes Pts present throghout session Occupational Therapy Visit Comments Patient Comments I think I would like to wait on a shower till tomorrow. Today is focused on having a BM. OT Pain Assessment Pain When Pain Assessed At Rest Pain Present Pain Present Pain Reported Location Back Scale Used Pt states the pain comes and goes but did not rate M4 OT- IP ADL's Start: 09/22/19 17:30 Freq: Status: Active Protocol: Document 09/23/19 14:39 CGR (Rec: 09/23/19 14:51 CGR [id number]) OT [id number] Comments OT Self-Feeding Comments Not meal time OT ADL-Grooming Comments OT Grooming Comments Pt declined OT ADL-Oral Care Comments Oral Care Comments Pt declined OT ADL-Dressing Comments OT Dressing Comments Not performed, provided with hip kit minus sign erector as pt has a sign erector at home. Pt states she knows how to use the equipment but did not want to practice today. OT ADL-Toileting General Evaluation Toileting Ability Moderate Assistance Areas Needing Assistance Perform Perineal Hygiene Comments OT Toileting Comments Pt sat on toilet for BM. Pt thought she had had a BM but nothing was in the toilet. Pt needed assist for back pericare. Pt with only hospital gown on but was able to hold gown out of the way, concerned that it would go into the toilet. OT ADL-Bathing Comments OT Bathing Comments Not performed, pt declined stating that she wanted to focus on having a BM today and possible shower for tomorrow. M5 OT- IP IADL's Start: 09/22/19 17:30 Freq: Status: Active Protocol: Document 09/22/19 15:30 [facility] (Rec: 09/22/19 17:50 [facility] [id number]) OT-Instrumental Activities of Daily Living Medication Management Medication Management Comments Suggested pt' shusband to assist as pt very groggy from pain medications. Money Management Money Management Caregiver Provides Assistance Paper Sample Clerk Paper Sample Clerk Caregiver Provides Assist M6 OT- IP Functional Cognition Start: 09/22/19 17:30 Freq: Status: Active Protocol: Document 09/22/19 15:30 [facility] (Rec: 09/22/19 17:50 [facility] [id number]) Cognitive Factors Limiting Selfcare Function Cognitive Ability Level of Alertness Alert,Drowsy Patient Orientation Name,Place,Situation Attention Span Ability Capable of Focused Attention, Capable of Sustained Attention Ability to Follow Commands Able to Follow One Step Commands with Increased Time, Able to Follow One Step Commands with Repetition Memory Description Short Term Impaired Safety Awareness Decreased Recall of Precautions,Decreased Ability to Apply Precautions, Underestimates Need for Assistance Cognitive Comments Cognitive Assessment Comments Pt unable to recall back precautions and needed step by step instructions for safety awareness for hand placecment and FWW use. OT- Vision and Hearing OT- Hearing Assessment OT- Hearing Assessment WFL OT- Vision Assessment Visual Acuity Glasses For Reading M7 OT- IP Mobility and Balance Start: 09/22/19 17:30 Freq: Status: Active Protocol: Document 09/23/19 14:39 CGR (Rec: 09/23/19 14:51 CGR [id number]) OT-Transfer Assessment Sit to and From Stand Sit to and from Stand Minimal Assistance Transfers Transfer Ability Contact Guard Assistance Technique Transfer Destination Chair,Toilet Transfer Technique Stand Step Pivot Devices Transfer Assistive Devices Gait Belt,Front Wheeled Walker Comments Mobility Comments Pt needs extra time for sit to stand and 2 tries before achieving standing from chair and from toilet. OT- Gait Assessment Gait Gait Assistance Required: Contact Guard Assist Assistive Devices Assistive Device Gait Belt,Front Wheeled Walker Comments Gait Ability Comments Pt ambulated out into the hallway and return in attempt to encourage BM. OT- Balance Assessment Sitting Balance and Reactions Static Sitting Balance Ability Good Dynamic Sitting Balance Ability Good M8 OT- IP Objective Assessments Start: 09/22/19 17:30 Freq: Status: Active Protocol: Document 09/22/19 15:30 CCC (Rec: 09/22/19 17:50 CCC [id number]) OT Gross Range of Motion Upper Extremity Range of Motion Assessment Right Impaired ROM Impairments Per pt rigth UE catches at times when reaching upright. OT Strength Comments Strength Comments Pt had bilateral wrist braces due to carpal tunnel. Pt's hand tax expert 3+/4-. OT- Coordination Assessment Comments Coordination Comments Decreased coordination in hands. M9 OT- IP Assessment and Plan Start: 09/22/19 17:30 Freq: Status: Active Protocol: Document 09/23/19 14:39 CGR (Rec: 09/23/19 14:51 CGR [id number]) OT Summary Assessment and Plan Potential Rehabilitation Potential Good Analytic Complexity at Evaluation Low Summary OT Impairments Pain,Balance,Coordination, Functional Cognition, Functional Mobility,Grooming, Dressing,Toileting,Bathing, Toilet Transfers,Shower Transfers Progress Towards Goals Slow Progress due to Pain,Slow Progress due to Activity Tolerance,Slow Progress due to Cognition Assessment Summary Pt agreeable to mobility to toilet with hopes of BM. Pt ambulated into the [place] and then to the bathroom for toileting. Pt unable to BM. Pt and educated on home health vs out patient P.T., toileting aid, and hip kit. Hip kit minus sign erector provided to pt. Pt states she knows how to use the equipment but declined practicing today. Pt requests to hold off on shower till tomorrow. Goals Grooming Goal Standby Assistance Dressing Goal Minimal Assistance Toileting Goal Minimal Assistance Bathing Goal Minimal Assistance Toilet Transfer Goal Standby Assistance Shower Transfer Goal Contact Guard Assistance Patient/Caregiver Education Goal Demonstrate Post-Op Precautions,Caregiver Independent Assisting Patient Days to Meet Goals 4 Frequency of Treatment Frequency Of Treatment Once a Day Treatment Plan OT Treatment Plan ADL Training,Functional Cognition Training,Functional Mobility,Patient/Family Education,Discharge Planning Other Treatment Recommendations and Next caregiver training with Treatment Focus Discharge Recommendations OT Discharge Recommendations SNF Rehab Other Discharge Recommendations Pending caregiver training completion and safety SNF versus Home with assist and HH . Home Equipment Needs BSC, LB dressing adaptive equipment, toilet aid
--- NOTE | 2019-09-23 13:09 | PM.PNPO.1 ---
Subjective Subjective Date Patient Seen: 09/23/19 Time Patient Seen: 13:09 Interval history: Patient progressing slowly with PT/OT secondary to pain. Patient voiding, no bowel movements. Pain controlled with oxycodone 10mg. Patient denies fever, chills, nausea, vomiting, chest pain, shortness of breath. Patient and spouse would prefer to be discharge home vs. SNF Exam Vital Signs (past 8 hours): - 09/23/19 08:00 09/23/19 08:20 09/23/19 09:32 Temperature 98.4 F Pulse Rate 60 68 Respiratory Rate 20 16 Blood Pressure 154/69 H 154/69 H Pulse Oximetry 95 95 Oxygen Delivery Method Room Air Oxygen Flow Rate 2 Narrative Exam Narrative: 69 year old female sitting comfortably in chair, drowsy but rousable with speech, no apparent distress. A&Ox3. Dressing CDI. Patient actively dorsiflex/plantar flex bl. Dorsalis pedis 2+ bl. Calves warm, compressible, soft, nttp. Sensory function grossly intact to light touch in LE bl. Assessment & Plan Post-op Postoperative Procedures: Procedures Operation Date: 09/21/19 11:15 Actual Procedures Side Surgeon p L3-4 TLIF, L2-3 hemilaminectomy Farideh Schilling MD Postoperative status narrative: Patient is progressing slowly with PT secondary to pain Continue ambulating with PT, needs to clear 'stairs' session Discharge likely in 24-48 hours, home w assistance vs. SNF Continue current pain management
--- NOTE | 2019-09-23 15:25 | PT.IPTN ---
Current Diagnoses Morbid (severe) obesity due to excess calories (09/21/19) Other spondylosis with radiculopathy, lumbosacral region (09/21/19) Spinal stenosis, lumbar region with neurogenic claudication (09/21/19) Surgery Performed Operation Date: 09/21/19 11:15 Actual Procedures p L3-4 TLIF, L2-3 hemilaminectomy - Farideh Schilling MD Physical Therapy Treatment Note M2 PT-IP Current Condition Start: 09/22/19 12:36 Freq: NEEDED Status: Active Protocol: Document 09/22/19 10:30 AB (Rec: 09/22/19 12:53 AB [id number]) Physical Therapy Current Condition Current Condition Evaluation Date 09/22/19 Treatment Diagnosis s/p L3-4 fusion/lami; L2-3 hemilami; difficulty in walking Onset Date 09/21/19 Precautions Lumbar Precautions Log Roll,No Twisting,Limit Bending,Lifting Restriction of 10 lbs,Gait Belt above Incisional Area M3 PT-IP Subjective Start: 09/22/19 12:36 Freq: NEEDED Status: Active Protocol: Document 09/23/19 15:25 SP (Rec: 09/23/19 15:45 SP [id number]) Subjective Physical Therapy Visit Type Type Treatment Note Visit Start Time 14:45 Visit Stop Time 15:25 Total Visit Minutes 4 Number of CHILD WELFARE SPECIALIST Visits 3 Physical Therapy Visit Comments Patient Comments Pt willing to work with PT. Therapy Pain Assessment Pain When Pain Assessed During Mobility Pain Present Pain Present Pain Reported Location Left Hip Intensity 3 Scale Used Numeric (1 - 10) Pain Management Techniques Re-positioning,Timing of Activity with Medications M4 PT-IP Mobility and Gait Start: 09/22/19 12:36 Freq: NEEDED Status: Active Protocol: Document 09/23/19 15:25 SP (Rec: 09/23/19 15:45 SP [id number]) PT-Transfer Assessment Sit to and From Stand Sit to and from Stand Moderate Assistance,1 Person Assistance,Use of Upper Extremities Equipment Transfer Assistive Device Gait Belt,Front Wheeled Walker Orthotic/Prosthetic Devices or Brace: No Transfers Transfer Destination Chair,Toilet Transfer Technique pt ambulated using FWW Transfer Ability Level of Assist Minimal Assistance,1 Person Assistance,Use of Upper Extremities Comments Mobility Comments Pt was seated in chair when arrived for PT. Pt required Mod A of 1 to complete STS from chair, commode, w/c by CHILD WELFARE SPECIALIST or during caregiver training with cuing for wt shift forward, pt pushes pretty heavily BUE to get to standing. Gait Assessment Gait Gait Assistance Required: Contact Guard Assist,Minimum Assistance,1 Person Assist Distance (Feet) 60 Able to Maintain Weight Bearing Status Yes During Gait Assistive Devices Assistive Device Gait Belt,Front Wheeled Walker Orthotic/Prosthetic Devices or Brace: No Gait Deviations General Gait Pattern Antalgic,Decreased Stride Length,Decreased Feet Clearance,Step-to Gait,Wide Based Gait Factors Limiting Gait Function Factors Limiting Gait Function Decreased Activity Tolerance, Decreased Strength,Difficulty Following Directions,Limited Range of Motion,Pain,Poor Balance,Poor Safety Awareness Comments Gait Comments Pt COG more posteriorly, cued for foward trunk hip hinge for safety with balance, no LOB, fair FWW navigation. Stair Climbing Assessment Evaluation Level of Assist On Stairs Moderate Assistance,Maximal Assistance,2 Person Assistance Devices Stair Climbing Assistive Devices Tripod Cane/Hurry Cane Technique/Endurance Stair Climbing Direction Ascend and Descend Stair Climbing Technique Step to Step Number of Steps Climbed 1 Comments Stair Climbing Comments Pt required Mod A of 1 using Hurry cane in LUE, support, and Max of 1 from behind to complete ascend/ descend 1 step to gait (RLE leading up ) to assimulate 1/ 2 steps outside of home. Pt's R knee almost buckled during descent but able to self correct with Max A of 1, Mod of 1. Pt has low activity tolerance in standing. PT-Balance Assessment Sitting Balance and Reactions Static Sitting Balance Ability Good Dynamic Sitting Balance Ability Good Standing Balance and Reactions Static Standing Balance Ability Fair Dynamic Standing Balance Ability Fair Device Used fww M5 PT-IP Objective Assessments Start: 09/22/19 12:36 Freq: NEEDED Status: Active Protocol: Document 09/22/19 10:30 AB (Rec: 09/22/19 12:53 AB [id number]) Orientation Orientation/Cognition Orientation Name,Place,Situation Language Function Ability No Deficits Noted Safety Awareness Decreased Safety Awareness Memory Description Short Term Impaired Comments pt was sleepy and requires cue to keep eyes open initially but was able to stay alert during mobility Gross Range of Motion Lower Extremity ROM Assessment Within Functional Limits Strength Lower Extremity Strength Hip 4-/5 Knee 4-/5 Coordination Assessment Gross Coordination Gross Coordination WNL Muscle Tone Muscle Tone WNL Yes M6 PT-IP Treatment Start: 09/22/19 12:36 Freq: NEEDED Status: Active Protocol: Document 09/22/19 13:35 SP (Rec: 09/22/19 13:49 SP [id number]) Physical Therapy Treatment Exercises Exercises Ankle Pumps,Seated Knee Flexion/Extension Knee ROM Measurement seated march Education Education Provided Precautions,Safety M7 PT-IP Assessment and Plan Start: 09/22/19 12:36 Freq: NEEDED Status: Active Protocol: Document 09/23/19 15:25 SP (Rec: 09/23/19 15:45 SP [id number]) PT Summary Assessment and Plan Potential Rehabilitation Potential Good Status of Condition at Evaluation Evolving Summary Impairments Pain,ROM,Strength,Balance, Coordination,Sensation,Tone, Cognition,Bed Mobility, Transfers,Gait,Activity Tolerance Assessment Summary See transfer, gait and stair mobility comments. Pt was up in chair, call light within reach end of PT. Goals Bed Mobility Goal Standby Assistance Transfer Goal Standby Assistance,Front Wheeled Walker Gait Goal Standby Assistance,Front Wheel Walker Gait Distance 150 Other Goals up/down 2 steps without rails: using hurrycane+ CUSTOMER EXPERIENCE INTERN Days to Meet Goals 5 Frequency of Treatment Frequency Of Treatment Twice a Day Treatment Plan Physical Therapy Treatment Plan Bed Mobility Training,Transfer Training,Gait Training, Therapeutic Exercise,Balance Retraining,Post Op Education, Discharge Planning,Hot or Cold Pack,Neuromuscular Re-ed, Coordination Retraining,Manual Therapy Other Recommendations and Next Treatment ambulation, caregiver training Focus Recommendations To Nursing Amount of Assist Needed 1 Person Assist Discharge Recommendations PT Discharge Recommendations SNF Rehab Other Discharge Recommendations Recommend SNF based on progress making with PT and challeng during caregiver training managing 2 steps for entering home, Mod of 1, Max of 1 to ascend 1 step today.
--- NOTE | 2019-09-23 15:26 | PC.NURSE ---
PT REQUESTED TO REMOVE IV ACCESS- THIS WAS DONE PER HER REQUEST
[2019-09-23 15:40] VITALS: BP 134/57; PULSE 68; RESP 17; TEMP 37.6; O2SAT 90
--- NOTE | 2019-09-23 15:40 | CM.DPC ---
DCP Cont: Spoke to Meredith at [facility] in [facility]. She mentioned that they do have [employer] referral if patient does need shelter. Updated physical therapist who is working with patient today. She is up ambulating with wheel-chair behind her. Patient's first choice is home, but can go to [facility] for rehab as well. P: DCP to continue to follow closely. Patient is accepted at [facility] in [facility], since [employer] referral is in. Damari Salamanca RN/Apparel Manufacture Instructor
[2019-09-23] MEDS: INSULIN GLARGINE 100 UNIT/ML 3ML PEN 44 UNIT SUBCUT (17:04)
[2019-09-23 19:29] VITALS: BP 135/53; PULSE 69; RESP 16; TEMP 36.3; O2SAT 93
[2019-09-23] MEDS: SENNOSIDES 8.6 MG TABLET 17.2 MG PO (20:24)
[2019-09-23] MEDS: ACETAMINOPHEN 325 MG TABLET 650 MG PO (21:50)
[2019-09-24] VITALS: BP 119/59; PULSE 66; RESP 16; TEMP 36; O2SAT 96
[2019-09-24] MEDS: OXYCODONE IR 5 MG TABLET 10 MG PO ×3 (02:10→12:12)
[2019-09-24] MEDS: ACETAMINOPHEN 325 MG TABLET 650 MG PO (04:54)
[2019-09-24 08:22] VITALS: BP 119/56; PULSE 61; RESP 16; TEMP 36.9; O2SAT 92
[2019-09-24] MEDS: PANTOPRAZOLE 20 MG TABLET PO (09:23)
[2019-09-24] MEDS: ATENOLOL 50 MG TABLET PO (09:23)
[2019-09-24] MEDS: hydroCHLOROthiazide 25 MG TABLET PO (09:23)
[2019-09-24] MEDS: LOSARTAN 50 MG TABLET 100 MG PO (09:23)
[2019-09-24] MEDS: DOCUSATE 100 MG CAPSULE PO (09:23)
[2019-09-24] MEDS: INSULIN ASPART 100 UNIT/ML INSULN PEN 34 UNIT SUBCUT ×2 (09:24→12:29)
[2019-09-24] MEDS: EZETIMIBE 10 MG TABLET PO (09:27)
[2019-09-24 09:50] VITALS: PULSE 61; RESP 18; O2SAT 96
--- NOTE | 2019-09-24 10:23 | PT.IPTN ---
Current Diagnoses Morbid (severe) obesity due to excess calories (09/21/19) Other spondylosis with radiculopathy, lumbosacral region (09/21/19) Spinal stenosis, lumbar region with neurogenic claudication (09/21/19) Surgery Performed Operation Date: 09/21/19 11:15 Actual Procedures p L3-4 TLIF, L2-3 hemilaminectomy - Farideh Schilling MD Physical Therapy Treatment Note M2 PT-IP Current Condition Start: 09/22/19 12:36 Freq: NEEDED Status: Active Protocol: Document 09/22/19 10:30 AB (Rec: 09/22/19 12:53 AB [id number]) Physical Therapy Current Condition Current Condition Evaluation Date 09/22/19 Treatment Diagnosis s/p L3-4 fusion/lami; L2-3 hemilami; difficulty in walking Onset Date 09/21/19 Precautions Lumbar Precautions Log Roll,No Twisting,Limit Bending,Lifting Restriction of 10 lbs,Gait Belt above Incisional Area M3 PT-IP Subjective Start: 09/22/19 12:36 Freq: NEEDED Status: Active Protocol: Document 09/24/19 10:23 AB (Rec: 09/24/19 12:19 AB [id number]) Subjective Physical Therapy Visit Type Type Treatment Note Visit Start Time 10:23 Visit Stop Time 10:54 Total Visit Minutes 31 Number of GROUND CREW LINESMAN Visits 0 Physical Therapy Visit Comments Patient Comments pt agreeable to do PT Therapy Pain Assessment Pain When Pain Assessed At Rest Pain Present Pain Present Pain Reported Location Back Intensity 4 Scale Used Numeric (1 - 10) Pain Management Techniques Re-positioning,Timing of Activity with Medications M4 PT-IP Mobility and Gait Start: 09/22/19 12:36 Freq: NEEDED Status: Active Protocol: Document 09/24/19 10:23 AB (Rec: 09/24/19 12:19 AB [id number]) PT-Transfer Assessment Sit to and From Stand Sit to and from Stand Standby Assistance,Contact Guard Assistance,Use of Upper Extremities Equipment Transfer Assistive Device Gait Belt,Front Wheeled Walker Orthotic/Prosthetic Devices or Brace: No Transfers Transfer Destination Toilet Transfer Technique pt ambulated to the toilet using FWW Transfer Ability Level of Assist Standby Assistance,1 Person Assistance,Use of Upper Extremities Comments Mobility Comments pt requested to use the toilet and completed sit to stand from chair CGA and cues. ambulated to the toilet using FWW SBA to CGA. Spouse arrived. pt agreed to do stair climbing. caregiver training conducted. pt ambulated in the hallway ~ 75 ft using FWW SBA. Wheeled pt to the stairs and completed . assisted pt back to her room and requested to use the toilet again and ambulated using FWW SBA towards the toilet ~ 25 ft. Left pt sitting on the toilet with call light within reach. Gait Assessment Gait Gait Assistance Required: Standby Assistance,Contact Guard Assist Distance (Feet) 75 Able to Maintain Weight Bearing Status Yes During Gait Assistive Devices Assistive Device Gait Belt,Front Wheeled Walker Orthotic/Prosthetic Devices or Brace: No Gait Deviations General Gait Pattern Antalgic,Decreased Stride Length,Decreased Feet Clearance Factors Limiting Gait Function Factors Limiting Gait Function Decreased Activity Tolerance, Decreased Strength,Limited Range of Motion,Pain,Poor Balance,Poor Safety Awareness Stair Climbing Assessment Evaluation Level of Assist On Stairs Contact Guard Assistance, Minimal Assistance Devices Stair Climbing Assistive Devices Straight Cane Technique/Endurance Stair Climbing Direction Ascend and Descend Stair Climbing Technique Step to Step Number of Steps Climbed 1 Stair Climbing Set # Repetitions (reps) 2 Comments Stair Climbing Comments caregiver training conducted with stair climbing. educated spouse and pt on techniques. pt completed safely with spouse assisting pt using hurry cane and SUPERVISOR PAINTING. M5 PT-IP Objective Assessments Start: 09/22/19 12:36 Freq: NEEDED Status: Active Protocol: Document 09/22/19 10:30 AB (Rec: 09/22/19 12:53 AB [id number]) Orientation Orientation/Cognition Orientation Name,Place,Situation Language Function Ability No Deficits Noted Safety Awareness Decreased Safety Awareness Memory Description Short Term Impaired Comments pt was sleepy and requires cue to keep eyes open initially but was able to stay alert during mobility Gross Range of Motion Lower Extremity ROM Assessment Within Functional Limits Strength Lower Extremity Strength Hip 4-/5 Knee 4-/5 Coordination Assessment Gross Coordination Gross Coordination WNL Muscle Tone Muscle Tone WNL Yes M6 PT-IP Treatment Start: 09/22/19 12:36 Freq: NEEDED Status: Active Protocol: Document 09/24/19 10:23 AB (Rec: 09/24/19 12:19 AB [id number]) Physical Therapy Treatment Education Education Provided Safety M7 PT-IP Assessment and Plan Start: 09/22/19 12:36 Freq: NEEDED Status: Active Protocol: Document 09/24/19 10:23 AB (Rec: 09/24/19 12:19 AB [id number]) PT Summary Assessment and Plan Potential Rehabilitation Potential Good Summary Impairments Pain,ROM,Strength,Balance, Coordination,Sensation, Cognition,Bed Mobility, Transfers,Gait,Activity Tolerance Progress Towards Goals Progressing Toward Goals Assessment Summary pt progressing with PT. caregiver training conducted and spouse was able to safely assist pt with stairs. pt plans to go home today with spouse to assist. Goals Bed Mobility Goal Standby Assistance Transfer Goal Standby Assistance,Front Wheeled Walker Gait Goal Standby Assistance,Front Wheel Walker Gait Distance 150 Other Goals up/down 2 steps without rails: using hurrycane+ SUPERVISOR PAINTING Days to Meet Goals 5 Frequency of Treatment Frequency Of Treatment Twice a Day Treatment Plan Physical Therapy Treatment Plan Bed Mobility Training,Transfer Training,Gait Training, Therapeutic Exercise,Balance Retraining,Post Op Education, Discharge Planning,Hot or Cold Pack,Neuromuscular Re-ed, Coordination Retraining,Manual Therapy Other Recommendations and Next Treatment ambulation, caregiver training Focus Recommendations To Nursing Amount of Assist Needed 1 Person Assist Discharge Recommendations PT Discharge Recommendations Home with Assistance
[2019-09-24] MEDS: INSULIN ASPART 100 UNIT/ML INSULN PEN SUBCUT (12:28)
--- NOTE | 2019-09-24 12:48 | PM.DS.1 ---
History of Present Illness History of Present Illness Date Patient Seen: 09/24/19 Time Patient Seen: 12:48 Chief complaint: Translaminar Interbody Fusion/Laminotomy*NEED MCR# Narrative: Patient has been having chronic back pain and worsening lumbar radiculopathy. Patient failed multiple conservative management with worsening pain weakness and numbness in her lower extremity. The patient has symptoms of neurogenic claudication. Patient has been having difficulty performing activity of daily living. After discussing risks benefits of treatment options, patient elected proceed with surgery. POD 3 s/p TLIF with Dr. Schilling. No acute events overnight. Patient has no complaints. Patient progressing well with PT/OT today compared to yesterday. Patient voiding, had a bowel movement. Pain controlled with oxycodone 10mg. Patient denies fever, chills, nausea, vomiting, chest pain, shortness of breath. Patient and spouse would prefer to be discharge home vs. SNF Discharge Providers Provider Date of admission: 09/21/19 08:30 Discharge Date: 09/24/19 Primary care physician: Rohit Galeas MD Consults: 09/21/19 16:06 Consult to Occupational Therapy Evaluate & Treat Comment: Physician Instructions: Evaluate and treat Consult to Physical Therapy Evaluate & Treat Comment: Physician Instructions: Evaluate and Treat 09/21/19 18:17 Consult to Respiratory Therapy Evaluate & Treat Comment: Physician Instructions: Evaluate and treat Discharge provider: Yuly Mercer PA-C Summary Hospital Course Discharge Diagnosis: s/p L3-L4 TLIF obesity inflammatory bowel disease hypertension hyperlipidemia fibromyalgia diabetes mellitus type II asthma arthritis Hospital Course: Patient admitted to hospital s/p TLIF with Dr. Schilling. Hospital course was notable for poor progression with PT/OT secondary to pain. Post op day 3 patient progressed well with PT/OT and was ready for discharge home with assistance from . Prescribed oxycodone, vistaril and tylenol for home. Patient voiding and eating without difficulyt or assistance prior to discharge. Dressing was CDI. Status at Discharge Cognitive/behavioral status at discharge: oriented Functional status at discharge: uses cane/walker Overall status at discharge: patient is progressing back to baseline Time Spent with Patient Time spent: Less than 30 minutes Exam Vital Signs (past 8 hours): - 09/24/19 08:22 09/24/19 09:50 Temperature 98.4 F Pulse Rate 61 61 Respiratory Rate 16 18 Blood Pressure 119/56 L Pulse Oximetry 92 96 Oxygen Delivery Method Room Air Oxygen Flow Rate 0 Narrative Exam Narrative: 69 year old female sitting in chair comfortably, eating, in no apparent distress. A&Ox3. Dressing intact, in place with shadow drainage. Sensory function grossly intact to light touch in LE bl. Dorsals pedis 2+ bl. Cap refill <2sec LE bl. Patient able to actively dorsiflex/plantar flex bl. Calves soft, warm, compressible, nttp. Discharge Plan Discharge Plan Patient Disposition: Home Discharge comment: change site dressing before discharge Discharge Med Rec/Prescriptions Prescriptions: New acetaminophen [Tylenol Extra Strength] 500 mg tablet 500 mg PO Q4H PRN (Reason: pain (scale score 4-6)) Qty: 60 RF: 0 oxycodone 10 mg tablet 10 mg PO Q4-6H PRN (Reason: pain) Qty: 40 RF: 0 hydroxyzine pamoate [Vistaril] 25 mg capsule 25 mg PO Q6H PRN (Reason: muscle spasms) Qty: 30 RF: 0 Continued losartan-hydrochlorothiazide 100-25 mg Tablet 1 tab PO DAILY RF: 0 omeprazole 20 mg Capsule,Delayed Release(Dr/Ec) 20 mg PO DAILY RF: 0 albuterol sulfate [Ventolin HFA] 90 mcg/actuation Hfa Aerosol Inhaler 2 puff INHALATION Q4-6H PRN (Reason: Shortness Of Breath) RF: 0 atenolol 50 mg Tablet 50 mg PO DAILY RF: 0 ezetimibe [Zetia] 10 mg Tablet 10 mg PO DAILY RF: 0 Novolog Flexpen U-100 Insulin 100 unit/mL (3 mL) Insulin Pen 34 - 40 unit SUBCUT TID RF: 0 Lantus Solostar U-100 Insulin 100 unit/mL (3 mL) Insulin Pen 44 unit SUBCUT QPM RF: 0 Victoza 2-Dennis 0.6 mg/0.1 mL (18 mg/3 mL) Pen Injector 1.8 mg SUBCUT QAM RF: 0 Discontinued ibuprofen [Advil] 200 mg Tablet 800 mg PO BID RF: 0 Follow up/Referrals: Farideh Schilling MD [Physician] - Rohit Galeas MD [Primary Care Provider] - Provider Discharge Instructions Diet: Carb-consistent/Diabetic Activity: ambulate as tolerated. no excessive bending, lifting, twisting Cold/Heat Therapy: continue cold/heat therapy as needed Skin/Wound/Dressing Care Report to your healthcare provider any signs of infection, such as:: chills, fever, increased pain, unusual drainage and unusual redness Dressing: keep dressing dry. if saturated please contact the office Visit Report/Discharge Packet Instructions: Oxycodone, Hydroxyzine, DI for Transforaminal Lumbar Interbody Fusion Stand Alone Forms: Surgery Discharge Discharge Data Primary Care Provider: Rohit Galeas Discharges patient from system. Discharge Date/Time: 09/24/19 14:33
--- NOTE | 2019-09-24 13:30 | OT.IP.TRT ---
Current Diagnoses Morbid (severe) obesity due to excess calories (09/21/19) Other spondylosis with radiculopathy, lumbosacral region (09/21/19) Spinal stenosis, lumbar region with neurogenic claudication (09/21/19) Surgery Performed Operation Date: 09/21/19 11:15 Actual Procedures p L3-4 TLIF, L2-3 hemilaminectomy - Farideh Schilling MD Occupational Therapy Treatment Note M2 OT-IP Current Condition Start: 09/22/19 17:30 Freq: Status: Active Protocol: Document 09/22/19 15:30 [facility] (Rec: 09/22/19 17:50 [facility] [id number]) Occupational Therapy Current Condition Current Condition Evaluation Date 09/22/19 Treatment Diagnosis S/p L3-4 fusion/lami L2-3 luciano -lami, decreased self care Diagnosis Onset Date 09/21/19 Post Operative Precautions Lumbar Precautions Log Roll,No Twisting,Limit Bending,Lifting Restriction of 10 lbs,Gait Belt above Incisional Area Weight Bearing Status Weight Bearing Status Weight Bear as Tolerated M3 OT- IP Subjective and Pain Start: 09/22/19 17:30 Freq: Status: Active Protocol: Document 09/24/19 13:30 [facility] (Rec: 09/24/19 15:17 [facility] [id number]) OT- Subjective Occupational Therapy Visit Type Type Treatment Note Visit Start Time 13:30 Visit Stop Time 14:13 Total Visit Minutes 43 Occupational Therapy Visit Comments Patient Comments Pt's present for caregiver training. Patient/Caregiver Goals To go home today. OT Pain Assessment Pain When Pain Assessed At Rest Pain Present Pain Present Denied Pain M4 OT- IP ADL's Start: 09/22/19 17:30 Freq: Status: Active Protocol: Document 09/24/19 13:30 [facility] (Rec: 09/24/19 15:17 [facility] [id number]) OT ADL-Dressing General Eval Upper Body Dressing Ability Independent Lower Body Dressing Ability Moderate Assistance Areas Needing Assistance Underpants/Brief,Pants/Shorts Comments OT Dressing Comments Assist to get brief and underwear over her feet. Educated pt's on proper body mechanics to not bend at his back, bend at his knees or use of chair or stool when assisting her for LB dressing needs. Otherwise pt can use touch up worker to assist. OT ADL-Bathing Bathing Type Bathing Type Shower General Evaluation Bathing Ability Moderate Assistance Areas Needing Assistance Wash/Dry Back,Wash/Dry Perineal Area,Wash/Dry Lower Extremities Devices Bathing Equipment Shower Chair without Arms,Grab Bars Comments OT Bathing Comments Pt's states getting a BSC delivered today and will use it as a shower chair. Pt needing assist fo wash her back, pericare needs and legs . Educated use of toilet aid, long thin towel to get between her legs or just have to assist for pericare needs. M7 OT- IP Mobility and Balance Start: 09/22/19 17:30 Freq: Status: Active Protocol: Document 09/24/19 13:30 [facility] (Rec: 09/24/19 15:17 [facility] [id number]) OT-Transfer Assessment Sit to and From Stand Sit to and from Stand Standby Assistance,Moderate Assistance Transfers Transfer Ability Standby Assistance Technique Transfer Destination Chair,Shower Stall,Wheelchair Devices Transfer Assistive Devices Gait Belt,Front Wheeled Walker Comments Mobility Comments SBA coming to stand to walk with FWW. Pt needing MODA to stand when unable to use her arm to help push up from a surface. OT- Balance Assessment Sitting Balance and Reactions Static Sitting Balance Ability Normal Dynamic Sitting Balance Ability Good Standing Balance and Reactions Static Standing Balance Ability Good M8 OT- IP Objective Assessments Start: 09/22/19 17:30 Freq: Status: Active Protocol: Document 09/22/19 15:30 [facility] (Rec: 09/22/19 17:50 [facility] [id number]) OT Gross Range of Motion Upper Extremity Range of Motion Assessment Right Impaired ROM Impairments Per pt rigth UE catches at times when reaching upright. OT Strength Comments Strength Comments Pt had bilateral wrist braces due to carpal tunnel. Pt's hand driver sales 3+/4-. OT- Coordination Assessment Comments Coordination Comments Decreased coordination in hands. M9 OT- IP Assessment and Plan Start: 09/22/19 17:30 Freq: Status: Active Protocol: 09/24/19 Pt's doing better today and feeling more comfortable to be able to assist pt . Emphasized for pt's to get in front of his when she is talking so he is able to hear her and also so she will not have to twist her back to talk to him. Pt's is very hard of hearing. Pt able to demonstrate good safety and understanding for all OT needs today. Pt going home with .
--- NOTE | 2019-09-24 14:04 | PC.NURSE ---
Addendum entered by Emilia Irizarry R.N. 09/24/19 14:32: Went over DC meds and instructions with patient and patients spouse, questions answered. Rx for meds given. Patient taken via WC to vehicle driven by spouse. Patient had all belongings. Original Note: Patient alert, oriented, rates pain to back 7/10 given 10mg oxycodone. Patient ambulating with SBA to bathroom and around nursing station. Patient showering with OT.
--- NOTE | 2019-09-24 14:17 | CM.DANOTE ---
DCP: continued: case received and a d/c order was noted. EMR reviewed. Have spoken now with OT Yessica who just saw pt. She said she is cleared for the home setting and will be leaving as soon as the dc paperwork is completed. Home has been pt's identified d/c goal with [facility] set up as a backup IF needed and IF pt would accept. [facility] is now updated to release the referral. P: home shortly with orthopedic followup planned.
== END 2019-09-24 14:33 | disposition home or self-care (01) | DRG 454 ==
LOC: AC 09:58 → ICU 12:17
PROVIDERS: Admitting Provider Orthopaedic Surgery Orthopaedic Surgery of the Spine; PCP Family Medicine; Visit Provider Orthopaedic Surgery Orthopaedic Surgery of the Spine
PROC: 0SG00AJ Fusion of Lumbar Vertebral Joint with Interbody Fusion Device, Posterior Approach, Anterior Column, Open Approach (ICD-10-PCS; principal; 2019-09-21 11:15)
DX: M48.062 Spinal stenosis, lumbar region with neurogenic claudication (principal); Z68.41 Body mass index [BMI] 40.0-44.9, adult; M47.27 Other spondylosis with radiculopathy, lumbosacral region; E66.01 Morbid (severe) obesity due to excess calories; E11.9 Type 2 diabetes mellitus without complications; I10 Essential (primary) hypertension; M79.7 Fibromyalgia; J45.909 Unspecified asthma, uncomplicated; Z79.4 Long term (current) use of insulin
CPT/HCPCS: 72100; 76000; 82962; 87797; 94760; 94762; 97116; 97162; 97165; 97530; 97535; C1776; C9290; J0131; J0330; J0690; J1170; J2250; J2405; J2704; J3010; J3410